=== PATIENT | male | born 1985 | race Native Hawaiian/Other Pacific Islander ===

== ENCOUNTER 2020-02-20 11:09 | Emergency (ER) | payer OTHER ==
[~2020-02-20] VITALS: Ht 167.6 cm; Wt 71.7 kg
[2020-02-20 11:17] VITALS: BP 128/77; TEMP 98.1
== END 2020-02-20 12:05 | disposition home or self-care (01) ==
LOC: ED 11:09
PROC: 0W9F3ZZ Drainage of Abdominal Wall, Percutaneous Approach (ICD-10-PCS; principal; 2020-02-20)
DX: L02.211 Cutaneous abscess of abdominal wall (principal)
CPT/HCPCS: 87070; 87077; 87185; 87186; 87205; 99282

== ENCOUNTER 2022-10-04 02:37 | Emergency (ER) | payer OTHER ==
[~2022-10-04] VITALS: Ht 170.2 cm; Wt 72.6 kg
[2022-10-04 04:10] VITALS: BP 134/86; TEMP 97.6
== END 2022-10-04 04:10 | disposition home or self-care (01) ==
LOC: ED 02:37
PROC: 0JQG0ZZ Repair Right Lower Arm Subcutaneous Tissue and Fascia, Open Approach (ICD-10-PCS; principal; 2022-10-04)
DX: S51.811A Laceration without foreign body of right forearm, initial encounter (principal); W45.8XXA Other foreign body or object entering through skin, initial encounter; F17.210 Nicotine dependence, cigarettes, uncomplicated
CPT/HCPCS: 99283